=== PATIENT | male | born 1970 | race Caucasian/White ===

== ENCOUNTER → 2025-01-13 12:14 | Outpatient (REF) | payer OTHER, SELFPAY | LOC: RAD 12:14 | PROVIDERS: ATTENDING PHYSICIAN Physician Assistant Medical; PRIMARYCARE PHYSICIAN Family Medicine | DX: M79.672 Pain in left foot (principal); R07.89 Other chest pain | CPT/HCPCS: 71046; 93971 ==

== ENCOUNTER → 2025-01-14 07:47 | Outpatient (REF) | payer OTHER, SELFPAY | LOC: RAD 07:47 | PROVIDERS: ATTENDING PHYSICIAN Physician Assistant Medical | DX: M79.672 Pain in left foot (principal) | CPT/HCPCS: 73630 ==